=== PATIENT | male | born 1995 | race Two or more races ===

== ENCOUNTER 2018-05-18 21:26 | Emergency (ER) | payer BC, MEDICAID ==
[~2018-05-18] VITALS: Ht 177.8 cm; Wt 88.9 kg
[2018-05-18 22:00] VITALS: BP 107/75
--- NOTE | 2018-05-18 22:00 | NUR ---
ER Nurse Note; Pt coming form home c/o abdominal pain since a month, 03/2018. Pt stated the pain is intermittent and comes and goes. Pt stated pain is in the lower left lower quadrant, pain level 7/10, non radiaiting. Pt denies trauma, heavy lifting. No nausea no vomiting no diarrhea. Bowel sounds heard in all quadrants, last BM 05/17 no dificulty voiding. ERMD at pt side; will continue to motnior.
--- NOTE | 2018-05-18 22:04 | Emergency Room Report ---
History of Present Illness General Chief Complaint: Abdominal Pain Source: Patient Present Illness HPI This is a 22-year-old male with no past medical history. He presents with chief complaint of left lower quadrant pain. Onset for last 3 days. Pain is throbbing in nature. 7 out of 10. Worse with palpation. No fever chills but no trauma. No heavy lifting. Eating drinking without a problem. No nausea vomiting or diarrhea. Had similar symptom last month the last 2 weeks and went away. No testicular tenderness. No urinary complaint. Allergies: Coded Allergies: PENICILLINS (Verified Allergy, Unknown, 05/18/18) Patient History Past Medical History: none, see triage record, old chart reviewed Past Surgical History: none Pertinent Family History: none Social History: Denies: smoking Immunizations: other Reviewed Nursing Documentation: PMH: Agreed; PSxH: Agreed Nursing Documentation-PMH Past Medical History: No Stated History Review of Systems Eye: Denies: eye pain, blurred vision ENT: Denies: ear pain, nose congestion, throat swelling Respiratory: Denies: cough, shortness of breath Cardiovascular: Denies: chest pain, palpitations Gastrointestinal: Reports: abdominal pain; Denies: diarrhea, nausea, vomiting Musculoskeletal: Denies: back pain, joint pain Skin: Denies: rash Neurological: Denies: headache, numbness Endocrine: Denies: increased thirst, increased urine Hematologic/Lymphatic: Denies: easy bruising All Other Systems: negative except mentioned in HPI Physical Exam Vital Signs Date Time Temp Pulse Resp B/P (MAP) Pulse Ox O2 Delivery O2 Flow Rate FiO2 05/18/18 21:38 98.4 67 20 107/75 98 Room Air vitals normal Sp02 EP Interpretation: reviewed, normal General Appearance: well appearing, no apparent distress, alert Head: normocephalic, atraumatic Eyes: bilateral eye PERRL, bilateral eye EOMI ENT: hearing grossly normal, normal pharynx Neck: full range of motion, supple, no meningismus Respiratory: chest non-tender, lungs clear, normal breath sounds Cardiovascular #1: regular rate, rhythm, no murmur Gastrointestinal: normal bowel sounds, no mass, no organomegaly, no bruit, non- distended, tenderness - Left lower quadrant Musculoskeletal: back normal, gait/station normal, normal range of motion Psychiatric: mood/affect normal Skin: warm/dry Medical Decision Making Diagnostic Impression: Primary Impression: Abdominal pain Qualified Codes: R10.32 - Left lower quadrant pain Additional Impression: Horseshoe kidney ER Course Patient with left lower quadrant abdominal pain. Is reproducible with movement. Most likely muscle skeletal in nature. No evidence of infection. No evidence of cellulitis or diverticulitis. Lab Results Impression labs normal CT/MRI/US Diagnostic Results CT/MRI/US Diagnostic Results : Imaging Test Ordered: CT abdomen and pelvis Impression read by radiologist.horseshoe kidney. Negative. Last Vital Signs Date Time Temp Pulse Resp B/P (MAP) Pulse Ox O2 Delivery O2 Flow Rate FiO2 05/18/18 21:38 98.4 67 20 107/75 98 Room Air Status: improved Disposition: HOME, SELF-CARE Condition: Stable Scripts Ibuprofen* (MOTRIN*) 600 Mg Tablet 600 MG ORAL THREE TIMES A DAY, #30 TAB 0 Refills Prov: Gregorio Riggs MD 05/18/18 Patient Instructions: Abdominal Pain, Adult Additional Instructions: Follow-up with your DrManuel in 3-5 days. Return if worse. Gregorio Riggs MD May 18, 2018 22:04
[2018-05-18] MEDS ORDERED: Ketorolac 30mg Inj IV ONE (22:15)
[2018-05-18 22:27] LABS: EOSINOPHILS % (AUTO) 0.8 % (0.0-3.0); HEMATOCRIT 48.4 % (42.0-52.0); HEMOGLOBIN 15.9 G/DL (14.2-18.0); LYMPHOCYTES % (AUTO) 27.3 % (20.0-45.0); MEAN CORPUSCULAR VOLUME 87 FL (80-99); MONOCYTES % (AUTO) 5.9 % (1.0-10.0); PLATELET COUNT 163 K/UL (150-450); RED BLOOD COUNT 5.54 M/UL (4.70-6.10); RED CELL DISTRIBUTION WIDTH 12.3 % (11.6-14.8)
[2018-05-18 22:34] LABS: APPEARANCE,URINE CLEAR; BILIRUBIN, URINE NEGATIVE (NEGATIVE); GLUCOSE, URINE (UA) NEGATIVE (NEGATIVE); KETONES,URINE NEGATIVE (NEGATIVE); LEUKOCYTE ESTERASE ,URINE NEGATIVE (NEGATIVE); NITRITE,URINE NEGATIVE (NEGATIVE); PH,URINE 7 (4.5-8.0); PROTEIN,URINE NEGATIVE (NEGATIVE); UROBILINOGEN,URINE 4 MG/DL (0.0-1.0)
[2018-05-18 22:36] LABS: COLOR,URINE YELLOW
[2018-05-18 22:37] LABS: ANION GAP 6 mmol/L (5-15); BLOOD UREA NITROGEN 13 mg/dL (7-18); CALCIUM 8.8 MG/DL (8.5-10.1); CARBON DIOXIDE 31 MMOL/L (21-32); CHLORIDE 103 MMOL/L (98-107); CREATININE 1.2 MG/DL (0.55-1.30); POTASSIUM 3.7 MMOL/L (3.5-5.1); SODIUM 140 MMOL/L (136-145)
--- NOTE | 2018-05-18 22:39 | Diagnostic Imaging Report ---
EXAM: CT Abdomen and Pelvis Without Intravenous Contrast CLINICAL HISTORY: ABD PAIN TECHNIQUE: Axial computed tomography images of the abdomen and pelvis without intravenous contrast. CTDI is 14 mGy and DLP is 675 mGy-cm. One or more of the following dose reduction techniques were used: automated exposure control, adjustment of the mA and/or kV according to patient size, use of iterative reconstruction technique. Coronal and sagittal reformatted images were created and reviewed. COMPARISON: No relevant prior studies available. FINDINGS: Lung bases: Unremarkable. No mass. No consolidation. ABDOMEN: Liver: Unremarkable. Gallbladder and bile ducts: Unremarkable. No calcified stones. No ductal dilation. Pancreas: Unremarkable. No ductal dilation. Spleen: Unremarkable. No splenomegaly. Adrenals: Unremarkable. No mass. Kidneys and ureters: Horseshoe kidney. No obstructing stones. No hydronephrosis. Stomach and bowel: See below. PELVIS: Appendix: No findings to suggest acute appendicitis. Bladder: Unremarkable. No stones. Reproductive: Unremarkable as visualized. ABDOMEN and PELVIS: Intraperitoneal space: Unremarkable. No free air. No significant fluid collection. Bones/joints: No acute fracture. No dislocation. Soft tissues: Unremarkable. Vasculature: Unremarkable. No abdominal aortic aneurysm. Lymph nodes: Prominent right lower quadrant mesenteric lymph nodes could be incidental, could be secondary to an infectious or inflammatory mild enteritis, or could represent mesenteric adenitis. IMPRESSION: 1. Prominent right lower quadrant mesenteric lymph nodes could be incidental, could be secondary to an infectious or inflammatory mild enteritis, or could represent mesenteric adenitis. 2. Horseshoe kidney. 3. Otherwise no abnormality seen.
--- NOTE | 2018-05-18 23:00 | NUR ---
ER Nurse Note: All orders completed per ERMD orders. Awaiting results from lab and radiology. Pt calm, coopearative, no signs of distress. No n/v/d. All safety meaures met; will continue to monitior.
[2018-05-18] MEDS ORDERED: IBUPROFEN600 MG ORAL (23:18)
[2018-05-18 23:45] VITALS: BP 136/65
--- NOTE | 2018-05-18 23:45 | NUR ---
ER Nurse Note: Pt seen, treated, medically cleared for discharge discharge by ERMD. Discharge instructions and prescriptions given with repeat verbalization by pt. Instructed pt to follow up with primary care physian within one week. Gave a referal to regulator mechanic. Pt a&ox4, VSS, no signs of distress. ID band removed. IV removed; site clean and bandaged. Pt left with all belongings, with stable gait; left via own transportation.
== END 2018-05-18 23:45 | disposition home or self-care (01) ==
LOC: EMR 22:07
DX: R10.32 Left lower quadrant pain (principal); Q63.1 Lobulated, fused and horseshoe kidney; Z88.0 Allergy status to penicillin
CPT/HCPCS: 36415; 74176; 80048; 81003; 85025; 96374; 99284; J1885